=== PATIENT | female | born 1990 | race Hispanic/Latino ===

== ENCOUNTER 2017-05-26 08:06 | Emergency (ER) | payer OTHER ==
[2017-05-26 08:13] VITALS: BMI 22.4
[2017-05-26] MEDS ORDERED: Sodium Chloride 0.9% 1,000 ML IV STA ×2 (08:26→10:34)
--- NOTE | 2017-05-26 08:39 | ED PDOC ---
HPI: Female Pain Time Seen by Provider: 05/26/17 08:20 Chief Complaint (Nursing): Female Genitourinary Chief Complaint (Provider): Female Genitourinary History Per: Patient History/Exam Limitations: no limitations Current Symptoms Are (Timing): Still Present Associated Symptoms: Fever. denies: Urinary Symptoms Additional Complaint(s): Ms. Goodson is a 27 year old female () who presents to ED for evaluation of vaginal bleeding s/p D&C at [facility] by Dr. Carvajal. Done on Tuesday (05/23/2017). demise at 8 weeks. Patient reports slightly bleeding day after. Patient reports yesterday and today bleeding has accelerated. Patient states this morning she felt weak and pre-syncopal. Complains of pelvic cramping. Denies fever or urinary symptoms.States she has been going through 1 pad per hour. PMD: Dr. Rich : 1 Para: 2 Past Medical History Reviewed: Historical Data, Nursing Documentation, Vital Signs Vital Signs: Last Vital Signs Temp 99.9 F H 05/26/17 08:13 Pulse 112 H 05/26/17 08:13 Resp 16 05/26/17 08:13 BP 90/58 L 05/26/17 08:13 Pulse Ox 98 05/26/17 08:13 - Medical History PMH: No Chronic Diseases - Surgical History Other surgeries: D&C - Family History Family History: States: Unknown Family Hx - Social History Current smoker - smoking cessation education provided: No Alcohol: None Drugs: Denies - Home Medications Home Medications: Ambulatory Orders Medication Instructions Recorded Naproxen [Naprosyn] 500 mg PO BID PRN #14 tablet 05/26/17 - Allergies Allergies/Adverse Reactions: Allergies Allergy/AdvReac Type Severity Reaction Status Date / Time No Known Allergies Allergy Verified 05/26/17 08:26 Review of Systems ROS Statement: Except As Marked, All Systems Reviewed And Found Negative Constitutional: Positive for: Weakness. Negative for: Fever Genitourinary Female: Positive for: Pelvic Pain (Pelvic cramping). Negative for : Dysuria, Hematuria Neurological: Positive for: Other (Pre-syncopal) Physical Exam - Reviewed Nursing Documentation Reviewed: Yes Vital Signs Reviewed: Yes - Physical Exam Appears: Positive for: Non-toxic Head Exam: Positive for: ATRAUMATIC, NORMAL INSPECTION, NORMOCEPHALIC Skin: Positive for: Normal Color, Warm, Dry Eye Exam: Positive for: Normal appearance, EOMI, PERRL ENT: Positive for: Normal ENT Inspection Neck: Positive for: Normal Cardiovascular/Chest: Positive for: Regular Rate, Rhythm Respiratory: Positive for: Normal Breath Sounds. Negative for: Respiratory Distress Gastrointestinal/Abdominal: Positive for: Normal Exam Extremity: Positive for: Normal ROM. Negative for: Deformity Neurologic/Psych: Positive for: Alert, Oriented - Laboratory Results Result Diagrams: 05/26/17 08:46 05/26/17 08:46 - ECG O2 Sat by Pulse Oximetry: 98 (RA) Pulse Ox Interpretation: Normal Medical Decision Making Medical Decision Making: Work up with blood work, IV fluids. Discussed with Dr. Carvajal Time: 08:26 Plan: - Type and Screen Stat - CMP - CBC - Partial Thromboplastin - Prothrombin Time - Sodium Chloride 0.9% 1,000 ML IV 1,000 mls/hr (-) Antibody Screen Time: 10:34 - Sodium Chloride 0.9% 1,000 ml IV 1,000 mls/hr 10:[address] Carvajal Time: 10:44 - Transvaginal Ultrasound Time: 12:06 Tranvaginal Ultrasound FINDINGS: UTERUS: Measures 5.9 x 6.9 x 9.6 cm. Normal in size and appearance. No fibroid or other mass lesion seen. ENDOMETRIUM: Measures 28.6. Mm in diameter. Thickened heterogeneous endometrium without discrete gestational sac, pole or yolk sac. CERVIX: No cervical abnormality identified. RIGHT OVARY: Measures 2.6 x 2.8 x 2.9 cm. No solid mass. Normal flow. LEFT OVARY: Measures 1.9 x 2.3 x 1.9 cm. No solid mass. Normal flow. FREE FLUID: No significant free fluid noted. OTHER FINDINGS: None. IMPRESSION: Markedly thickened heterogeneous, avascular endometrium. Unremarkable adnexa. --------- resdiscussed w Dr Carvajal, can be discharged to followup w office. Instructions and results of diagnostics were explained to patient. states had minimal bleeding on re-eval. Scribe Attestation: Documented by García Junior, acting as a scribe for Casimiro Brooke III, DO Provider Scribe Attestation: All medical record entries made by the Scribe were at my direction and personally dictated by me. I have reviewed the chart and agree that the record accurately reflects my personal performance of the history, physical exam, medical decision making, and the department course for this patient. I have also personally directed, reviewed, and agree with the discharge instructions and disposition. Disposition - Clinical Impression Clinical Impression: Complete - Patient ED Disposition Is Patient to be Admitted: No Counseled Patient/Family Regarding: Studies Performed, Diagnosis, Need For Followup, Rx Given - Disposition Referrals: Jeffy Carvajal MD [Staff Provider] - Disposition: Routine/Home Disposition Time: 12:01 Condition: IMPROVED Additional Instructions: Return to ER for any worse or new symptoms. See Dr Carvajal for followup as directed. Drink plenty of fluids. Use naprosyn for pain as directed. Prescriptions: Naproxen [Naprosyn] 500 mg PO BID PRN #14 tablet PRN Reason: Pain, Moderate (4-7) Instructions: Dealing With Miscarriage, Miscarriage (DC) Forms: [employer] ([place]ian), [facility] ED School/Work Excuse
[2017-05-26 09:21] LABS: ALB/GLOB RATIO 1.3 (1.0-2.1); ALT/SGPT 32 U/L (9-52); AST/SGOT 27 U/L (14-36); BLOOD UREA NITROGEN 10 mg/dl (7-17); CALCIUM 9.2 mg/dL (8.4-10.2); GFR AFRICAN-AMERICAN > 60; GFR NON-AFRICAN AMERICAN > 60
[2017-05-26 09:26] LABS: BASO % 0.2 % (0.0-2.0); EOS # 0.1 K/uL (0.0-0.7); EOS % 1.2 % (0.0-4.0); HEMOGLOBIN 12.5 g/dL (12.0-16.0); LYMPH # 0.7 K/uL (1.0-4.3); LYMPH % 7.1 % (20.0-40.0); MEAN CELL VOLUME 91.9 fl (81.0-99.0); MEAN CORPUSCULAR HEMOGLOBIN 31.1 pg (27.0-31.0); MEAN CORPUSCULAR HGB CONC 33.8 g/dL (33.0-37.0); MEAN PLATELET VOLUME 9.1 fl (7.2-11.7); MONO # 0.7 K/uL (0.0-0.8); MONO % 7.6 % (0.0-10.0); NEUT # 7.8 K/uL (1.8-7.0); NEUT % 83.9 % (50.0-75.0); NRBC % 0.1 % (0.0-0.0); PLATELET COUNT 186 K/uL (130-400); RBC 4.01 Mil/uL (3.80-5.20); RED CELL DISTRIBUTION WIDTH 12.7 % (11.5-14.5); WHITE BLOOD COUNT 9.3 K/uL (4.8-10.8)
[2017-05-26 09:49] LABS: INR 1.1 (0.9-1.2); PARTIAL THROMBOPLASTIN TIME 27.5 Seconds (25.6-37.1); PROTHROMBIN TIME 12.4 Seconds (9.8-13.1)
[2017-05-26 10:43] VITALS: TEMP 98.4
[2017-05-26 10:44] LABS: LYMPHOCYTE 9 % (20-50); MONOCYTE 10 % (0-10); NEUTROPHIL 81 % (42-75); PLATELET ESTIMATE NORMAL (NORMAL); TOTAL CELLS COUNTED 100
[2017-05-26 10:45] LABS: ANISOCYTOSIS SLIGHT; OVALOCYTES SLIGHT
--- NOTE | 2017-05-26 12:08 | US ---
HISTORY: Pain status post D&C performed 05/23/2017. LMP 03/17/2017. Beta HCG results: Unknown COMPARISON: None available. TECHNIQUE: Transvaginal only. Real -time technique with 2D, duplex and color Doppler FINDINGS: UTERUS: Measures 5.9 x 6.9 x 9.6 cm. Normal in size and appearance. No fibroid or other mass lesion seen. ENDOMETRIUM: Measures 28.6. Mm in diameter. Thickened heterogeneous endometrium without discrete gestational sac, pole or yolk sac. CERVIX: No cervical abnormality identified. RIGHT OVARY: Measures 2.6 x 2.8 x 2.9 cm. No solid mass. Normal flow. LEFT OVARY: Measures 1.9 x 2.3 x 1.9 cm. No solid mass. Normal flow. FREE FLUID: No significant free fluid noted. OTHER FINDINGS: None. IMPRESSION: Markedly thickened heterogeneous, avascular endometrium. Unremarkable adnexa.
[2017-05-26 13:03] VITALS: BP 119/69; PULSE 89; RESP 15
[2017-06-08 12:48] VITALS: O2SAT 98
== END 2017-05-26 13:05 | disposition home or self-care (01) ==
LOC: H.ER 08:06
DX: O03.9 Complete or unspecified spontaneous abortion without complication (principal)
CPT/HCPCS: 76830; 80053; 85025; 85610; 85730; 86850; 86900; 96361; 96374; 99284; J1885; J7040